=== PATIENT | female | born 1955 | race Caucasian/White ===

== ENCOUNTER 2017-06-13 06:14 | Emergency (ER) | payer MEDICAID, OTHER ==
[~2017-06-13] VITALS: Ht 160 cm; Wt 63.5 kg
[2017-06-13] MEDS ORDERED: ROSU20TA PO (06:29)
[2017-06-13] MEDS ORDERED: SERT50TA PO (06:29)
[2017-06-13] MEDS ORDERED: CHOL20004 PO (06:29)
[2017-06-13] MEDS ORDERED: WARF7.5T23 PO (06:29)
[2017-06-13] MEDS ORDERED: IV NORMAL SALINE 1000 ML BAG IV ONE (06:45)
[2017-06-13] MEDS ORDERED: MORPHINE SULFATE 2 MG/1 ML DISP.SYRIN IV ONE (06:45)
[2017-06-13] MEDS ORDERED: ONDANSETRON 4 MG/2 ML VIAL IV ONE (06:45)
[2017-06-13 06:52] LABS: BASOPHILS # (AUTO) 0.1 K/uL (0.0-8.0); BASOPHILS % (AUTO) 0.7 % (0.0-2.0); EOSINOPHILS # (AUTO) 0.2 K/uL (0.0-0.7); EOSINOPHILS % (AUTO) 2.2 % (0.0-7.0); HEMATOCRIT 43.4 % (31.2-41.9); HEMOGLOBIN 14.7 g/dL (10.9-14.3); LYMPHOCYTES # (AUTO) 2.6 K/uL (20.0-40.0); LYMPHOCYTES % (AUTO) 31.9 % (20.5-51.5); MEAN CORPUSCULAR HEMOGLOBIN 30.8 uug (24.7-32.8); MEAN CORPUSCULAR HGB CONC 34 g/dL (32.3-35.6); MEAN CORPUSCULAR VOLUME 91.3 fL (75.5-95.3); MONOCYTES # (AUTO) 0.9 K/uL (2.0-10.0); MONOCYTES % (AUTO) 10.7 % (0.0-11.0); NEUTROPHILS # (AUTO) 4.4 K/uL (1.8-8.9); NEUTROPHILS % (AUTO) 54.5 % (38.5-71.5); PLATELET COUNT (AUTO) 187 K/uL (179-408); RED BLOOD CELL COUNT(AUTO) 4.75 MIL/uL (3.63-4.92)
[2017-06-13] MEDS ORDERED: MORPHINE SULFATE 4 MG/1 ML DISP.SYRIN ONE ×3 (06:59→07:41)
[2017-06-13] MEDS ORDERED: ONDANSETRON 4 MG/2 ML VIAL ONE ×2 (06:59→07:33)
[2017-06-13 07:09] LABS: BILIRUBIN,DIRECT 0.1 mg/dL (0.0-0.2); BILIRUBIN,TOTAL 0.5 mg/dL (0.2-1.0); POTASSIUM 3.9 mmol/L (3.5-5.1); TOTAL PROTEIN, SERUM 7.3 g/dL (6.4-8.2)
[2017-06-13] MEDS: ONDANSETRON 4 MG/2 ML VIAL IV ONE ×2 (07:18→07:19)
[2017-06-13] MEDS: KETOROLAC TROMETHAMINE 15 MG INJ IV ONE ×2 (07:19→07:20)
[2017-06-13] MEDS: MORPHINE SULFATE 2 MG/1 ML DISP.SYRIN IV ONE ×2 (07:23→07:26)
--- NOTE | 2017-06-13 07:23 | NUR ---
Haydee urbina in ED - 06/13/17 at 0730 by NAN morphine 4 mg wasted, the plunger malfunction
[2017-06-13 07:27] LABS: *BILIRUBIN,URIN NEGATIVE (NEGATIVE); *BLOOD, URINE 3+ (NEGATIVE); *CLARITY,URINE CLOUDY (CLEAR); *COLOR,URINE RED (YELLOW); *KETONES,URINE NEGATIVE (NEGATIVE); *PROTEIN,URINE 2+ (NEGATIVE); *UROBILINOGEN,URINE 0.2 E.U./dl (NORMAL); NITRITE, URINE NEGATIVE (NEGATIVE); PH,URINE 8.5 (5.0-8.0); UGLUCOSE NEGATIVE (NEGATIVE)
[2017-06-13 07:28] LABS: LEUKOCYTE ESTERASE ,URINE TRACE (NEGATIVE)
[2017-06-13] MEDS ORDERED: KETOROLAC TROMETHAMINE 15 MG INJ ONE (07:32)
[2017-06-13 07:53] LABS: BACTERIA,URINE FEW /HPF (NONE SEEN); RBC,URINE TNTC /HPF (0-3); SQUAMOUS EPITHELIAL CELL,UR FEW /HPF (NONE SEEN)
--- NOTE | 2017-06-13 08:14 | NUR ---
Pt is asleep. easily arousable. breathing unlabored and even. denies left flank pain at this time. vitals stable. tolerating IVF. will continue to monitor.
--- NOTE | 2017-06-13 08:40 | NUR ---
Pt is alert and oriented x 4. breathing unlabored and even. denies flank pain. Pt verbalized understading of discharge instruction. All diagnostic test results provided to patient. pt was able to ambulate with a steady gait. IV dc'd. Site intact. Adviced pt not to dirve. Pt states, "I will walk home."
[2017-06-13 08:47] VITALS: BP 147/71
== END 2017-06-13 08:49 | disposition home or self-care (01) ==
LOC: ER 06:15
DX: T45.511A Poisoning by anticoagulants, accidental (unintentional), initial encounter (principal); E27.9 Disorder of adrenal gland, unspecified; N39.0 Urinary tract infection, site not specified; E78.5 Hyperlipidemia, unspecified; R31.9 Hematuria, unspecified; Z79.01 Long term (current) use of anticoagulants; Z88.0 Allergy status to penicillin; R04.0 Epistaxis; Y92.89 Other specified places as the place of occurrence of the external cause
CPT/HCPCS: 36415; 83690; 85025; 85730; A4663; J1885; J2270; J2405

== ENCOUNTER 2019-08-31 13:21 | Emergency (ER) | payer MEDICARE, OTHER ==
[~2019-08-31] VITALS: Ht 162.6 cm; Wt 77.1 kg
--- NOTE | 2019-08-31 13:40 | NUR ---
Patient ambulated with stable gait. A/Ox4. Patient roomed in a negative pressure room. Speech is clear, speaks in complete sentences. No acute neuro deficits. Respiratory even and unlabored, despite the cough and congestion. Patient reports being in [place] for about 5 months and arrived back to the [facility] about a week ago, and when she flew from [place] to [place] was when she started feeling the reported symptoms. Denies any cp, no cardiovascular distress. Denies any n/v/d.
--- NOTE | 2019-08-31 16:34 | NUR ---
According to Dr. Lynn, he was able to speak to someone from [facility] regarding patient case. Patient will be discharged and sent home. And for any further worsening of symptoms patient needs to be seen back in the emergency department.
--- NOTE | 2019-08-31 16:42 | NUR ---
Patient discharged to home in stable conditon. Written and verbal after care instructions given. Patient verbalizes understanding of instructions. Patient ambulated with stable gait.
[2019-08-31 16:46] VITALS: BP 130/86
== END 2019-08-31 16:46 | disposition home or self-care (01) ==
LOC: ER 13:23
DX: J06.9 Acute upper respiratory infection, unspecified (principal); E78.5 Hyperlipidemia, unspecified; Z88.0 Allergy status to penicillin; Z79.899 Other long term (current) drug therapy; Z79.01 Long term (current) use of anticoagulants
CPT/HCPCS: 71045; 87400; A4663

== ENCOUNTER 2019-09-08 16:04 | Emergency (ER) | payer MEDICARE ==
[~2019-09-08] VITALS: Ht 162.6 cm; Wt 77.1 kg
--- NOTE | 2019-09-08 16:04 | NUR ---
regular mask provided for to place. afrter placing the mask, requested to pt to sanitize her hands.
--- NOTE | 2019-09-08 16:50 | NUR ---
marques blanco at bedside talking to pt.
== END 2019-09-08 17:06 | disposition left against medical advice (07) ==
LOC: ER 16:06
DX: R05 Cough (principal); E78.5 Hyperlipidemia, unspecified; F17.200 Nicotine dependence, unspecified, uncomplicated; Z88.0 Allergy status to penicillin; Z79.899 Other long term (current) drug therapy; Z79.01 Long term (current) use of anticoagulants
CPT/HCPCS: A4663